=== PATIENT | female | born 2000 | race Two or more races ===

== ENCOUNTER 2024-03-03 19:39 | Emergency (ER) | payer OTHER ==
[~2024-03-03] VITALS: Ht 162.6 cm; Wt 90.3 kg
[2024-03-03] MEDS ORDERED: ZOFRAN8 MG (20:20)
[2024-03-03] MEDS ORDERED: DICLEGIS DR 101 EACH (20:21)
[2024-03-03] MEDS ORDERED: PEPCID AC10 MG (20:21)
[2024-03-03] MEDS ORDERED: NASAL MIST126 ML (20:21)
[2024-03-03] MEDS ORDERED: BUTALB/ACETAMINOPHEN/CAFFEINE 1 TAB TABLET PO ONE ×2 (20:30→20:46)
[2024-03-03] MEDS ORDERED: MEPERIDINE HCL/PF 25 MG/ML VIAL IV ONE (20:30)
[2024-03-03] MEDS ORDERED: ONDANSETRON HCL 2 MG/ML VIAL ONE (20:53)
[2024-03-03] MEDS ORDERED: ONDANSETRON HCL 2 MG/ML VIAL IV ONE (21:00)
== END 2024-03-03 23:16 | disposition home or self-care (01) ==
LOC: ER 19:41
DX: O21.9 Vomiting of pregnancy, unspecified (principal); Z3A.12 12 weeks gestation of pregnancy; R51.9 Headache, unspecified; Z88.6 Allergy status to analgesic agent; Z88.8 Allergy status to other drugs, medicaments and biological substances